=== PATIENT | male | born 1985 | race Caucasian/White ===

== ENCOUNTER 2023-07-18 16:48 | Emergency (ER) | payer OTHER ==
[2023-07-18 17:11] VITALS: BP 125/91; PULSE 88; RESP 16; TEMP 98; BMI 31.9
[2023-07-18] MEDS ORDERED: IBUPROFEN 600 MG TABLET (FP) PO ONE ×2 (17:15→17:22)
== END 2023-07-18 17:30 | disposition home or self-care (01) ==
LOC: FER 16:48
DX: S13.4XXA Sprain of ligaments of cervical spine, initial encounter (principal); M54.2 Cervicalgia; V49.40XA Driver injured in collision with unspecified motor vehicles in traffic accident, initial encounter; Y93.I9 Activity, other involving external motion
CPT/HCPCS: 99283-25